=== PATIENT | male | born 1985 | race American Indian/Alaskan Native ===

== ENCOUNTER 2016-08-28 19:35 | Emergency (ER) | payer OTHER ==
[2016-08-28 19:42] VITALS: BP 118/78; PULSE 60; RESP 16; TEMP 98.5; O2SAT 98
--- NOTE | 2016-08-28 20:05 | C.PDOC ---
History Of Present Illness 31 y/o male presents to ED with c/o penile swelling after having protected sexual intercourse last night. Denies any pain, discharge, lesions, fever, chills, dysuria, hematuria, or other complaints. Time Seen by Provider: 08/28/16 19:47 Chief Complaint (Nursing): Male Genitourinary History Per: Patient History/Exam Limitations: no limitations Onset/Duration Of Symptoms: Days Current Symptoms Are (Timing): Still Present Quality Of Discomfort: denies: "Pain" Associated Symptoms: denies: Fever, Chills, Urinary Symptoms Recent travel outside of the [place]: No Past Medical History Reviewed: Historical Data, Nursing Documentation, Vital Signs Vital Signs: Last Vital Signs Temp 98.5 F 08/28/16 19:38 Pulse 60 08/28/16 19:38 Resp 16 08/28/16 19:38 BP 118/78 08/28/16 19:38 Pulse Ox 98 08/28/16 21:14 - Medical History PMH: Asthma Family History: States: Unknown Family Hx - Social History Hx Alcohol Use: Yes Hx Substance Use: No - Immunization History Hx Tetanus Toxoid Vaccination: No Hx Influenza Vaccination: No Hx Pneumococcal Vaccination: No Review Of Systems Except As Marked, All Systems Reviewed And Found Negative. Constitutional: Negative for: Fever, Chills ENT: Negative for: Throat Pain Respiratory: Negative for: Cough Genitourinary: Positive for: Other (penile swelling). Negative for: Dysuria, Hematuria, Rash, Penile Pain Skin: Negative for: Rash Physical Exam - Physical Exam Appears: Non-toxic, No Acute Distress Skin: Normal Color, Warm, Dry Head: Normacephalic Eye(s): bilateral: Normal Inspection, PERRL Gastrointestinal/Abdominal: Soft, No Tenderness, No Distention, No Guarding Back: Normal Inspection Male Genital: No Testicular Tenderness, No Testicular Swelling, No Scrotal Swelling, Circumcised, Other (swelling to skin of penile shaft at base of glans penis, no lesions, discharge, ecchymosis or erythema) Extremity: Normal ROM, Capillary Refill (< 2 sec.) Extremity: Bilateral: Normal Color And Temperature Neurological/Psych: Oriented x3, Normal Speech, Normal Cognition ED Course And Treatment O2 Sat by Pulse Oximetry: 98 (RA) Pulse Ox Interpretation: Normal Progress Note: Patient is comfortable, and is in no acute distress, pt reassured and advised follow up with if sx persists and will return to ER if worse. Disposition Counseled Patient/Family Regarding: Diagnosis, Need For Followup, Rx Given - Disposition Referrals: Jae Lee MD [Staff Provider] - Disposition: HOME/ ROUTINE Disposition Time: 20:03 Condition: STABLE Additional Instructions: Avoid penile manipulation, masturbation or intercourse until swelling has resolved Return to ER if worse Forms: General Discharge Instructions - Clinical Impression Clinical Impression: Swelling of penis - PA / BAIT TIER / Resident Statement MD/DO has reviewed & agrees with the documentation as recorded. - Scribe Statement The provider has reviewed the documentation as recorded by the Scribe Ravinder Ramsey All medical record entries made by the Scribe were at my direction and personally dictated by me. I have reviewed the chart and agree that the record accurately reflects my personal performance of the history, physical exam, medical decision making, and the department course for this patient. I have also personally directed, reviewed, and agree with the discharge instructions and disposition.
== END 2016-08-28 20:21 | disposition home or self-care (01) ==
LOC: C.ER 19:35
DX: N48.89 Other specified disorders of penis (principal)